=== PATIENT | male | born 1945 | race Two or more races ===

== ENCOUNTER 2018-12-13 08:29 | Day surgery (SDC) | payer MEDICARE ==
[~2018-12-13 08:29] MED LIST: Acetaminophen TAB* 325 MG PO PRN; Buffered Lidocaine 1% SYRIN* 1 ML/SYRINGE INTRADERM ONE
[2018-12-13] MEDS ORDERED: Midazolam* 1 MG/ML 2 ML VIAL (2 MG) ONE ×2 (09:27→09:30)
[2018-12-13 09:57] VITALS: BP 127/67
--- NOTE | 2018-12-13 12:55 | OP ---
DATE OF OPERATION/DATE OF DICTATION: 12/13/2018. DATE OF : 1945. SURGEON: Dr. Tam Haider. APPLICATION PERFORMANCE ENGINEER: None. ANESTHESIA: Topical with intravenous sedation. PRE-OP DIAGNOSIS: Cataract, left eye. POST-OP DIAGNOSIS: Cataract, left eye. OPERATIVE PROCEDURE: Phacoemulsification and cataract extraction with posterior chamber intraocular lens implant, left eye. COMPLICATIONS: None. BLOOD LOSS: None. OPERATIVE FINDINGS: The patient was brought to the operating room and received a small amount of int ravenous sedation. A drop of Tetracaine was placed in his left eye. He was prepped and draped in th e usual sterile fashion for ophthalmic surgery and attention was directed to the left eye where a spe culum was placed. A paracentesis was created at the 5 o'clock position and 0.1 cc of 1 percent prese rvative-free Lidocaine was injected into the anterior chamber followed by DisCoVisc. The eye was dig itally stabilized while a 2.75 mm keratome was used to create a triplanar clear corneal incision at t he 3 o'clock position. A continuous curvilinear capsulorrhexis was created with a cystotome and Utra ta forceps. BSS on a cannula was used to hydrodissect the lens from the capsule. Phacoemulsificatio n was performed in a [id number]-[id number] technique to create four fragments which were removed. Resid ual cortical material was removed with irrigation and aspiration. DisCoVisc was used to inflate the c apsular bag and an AUOOTO 17.0 diopter lens was folded and inserted into the capsular bag. DisCoVisc was removed using irrigation and aspiration. BSS on a cannula was used to hydrate the corneal rachel a and seal the wound. At the end of the case the pupil was round and the lens was centered. The eye was of normal pressure and the wound was water tight. The speculum was removed and topical Maxitrol ointment was placed on the surface of the eye. The eye was closed, patched and shielded and the camelia ent was sent to the recovery room in stable condition with post operative instructions and follow-up appointment given. [id number]/[facility] #: [id number]
[2018-12-13] MEDS ORDERED: Lidocaine 1%* 5 ML VIAL ONE (15:25)
[2018-12-13] MEDS ORDERED: Cyclopentolate 1% OPTH.SOL* 2 ML BTL ONE (15:25)
[2018-12-13] MEDS ORDERED: Ketorolac 0.5% OPHTH (NF) 0.5 % 5 ML BTL ONE (15:25)
[2018-12-13] MEDS ORDERED: Neomycin/Polymy/Dex OPHTH.OIN* 3.5 GM ONE (15:25)
[2018-12-13] MEDS ORDERED: Phenylephrine OPHTH SOL 2.5%* 2 ML ONE (15:25)
[2018-12-13] MEDS ORDERED: Tropicamide 1% OPTH.SOL* BTL ONE (15:25)
[2018-12-13] MEDS ORDERED: Tetracaine 0.5% OPTH.SOL 4 ML* 1 DROP BTL ONE (15:25)
== END 2018-12-13 10:10 | disposition home or self-care (01) ==
LOC: OREAST 08:29
PROVIDERS: ATTEND Ophthalmology
DX: H25.13 Age-related nuclear cataract, bilateral (principal); I10 Essential (primary) hypertension; F32.9 Major depressive disorder, single episode, unspecified; K21.9 Gastro-esophageal reflux disease without esophagitis; E78.00 Pure hypercholesterolemia, unspecified; J30.9 Allergic rhinitis, unspecified; J30.2 Other seasonal allergic rhinitis; N40.0 Benign prostatic hyperplasia without lower urinary tract symptoms; G47.33 Obstructive sleep apnea (adult) (pediatric); Z85.828 Personal history of other malignant neoplasm of skin
CPT/HCPCS: A9270-GY; J2250; V2632

== ENCOUNTER 2018-12-20 06:56 | Day surgery (SDC) | payer MEDICARE ==
[2018-12-20] MEDS ORDERED: Midazolam* 1 MG/ML 5 ML VIAL (5 MG) ONE (08:04)
[2018-12-20 08:53] VITALS: BP 133/65
--- NOTE | 2018-12-20 09:08 | OP ---
OPERATIVE REPORT: DATE OF OPERATION: 12/20/18 DATE OF : [birth year] SURGEON: Dr. Tam Haider. APPLIED RESEARCH DIRECTOR: None. ANESTHESIA: Topical with intravenous sedation. PRE-OP DIAGNOSIS: Cataract, right eye. POST-OP DIAGNOSIS: Cataract, right eye. OPERATIVE PROCEDURE: Phacoemulsification and cataract extraction with posterior chamber intraocular lens implant, right eye. COMPLICATIONS: None. BLOOD LOSS: None. OPERATIVE FINDINGS: The patient was brought to the operating room and received a small amount of int ravenous sedation. A drop of Tetracaine was placed in his right eye. He was prepped and draped in t he usual sterile fashion for ophthalmic surgery and attention was directed to the right eye where a s peculum was placed. A paracentesis was created at the 11 o'clock position and 0.1 cc of 1 percent pr eservative-free Lidocaine was injected into the anterior chamber followed by DisCoVisc. The eye was digitally stabilized while a 2.75 mm keratome was used to create a triplanar clear corneal incision a t the 9 o'clock position. A continuous curvilinear capsulorrhexis was created with a cystotome and U trata forceps. BSS on a cannula was used to hydrodissect the lens from the capsule. Phacoemulsificat ion was performed in a [id number]-fvp-icibgdw technique to create four fragments which were removed. Res idual cortical material was removed with irrigation and aspiration. DisCoVisc was used to inflate th e capsular bag and an AU00T0 18.5 diopter lens was folded and inserted into the capsular bag. DisCoV isc was removed using irrigation and aspiration. BSS on a cannula was used to hydrate the corneal st anju and seal the wound. At the end of the case the pupil was round and the lens was centered. The eye was of normal pressure and the wound was water tight. The speculum was removed and topical Maxit rol ointment was placed on the surface of the eye. The eye was closed, patched and shielded and the patient was sent to the recovery room in stable condition with post operative instructions and follow -up appointment given. [id number]/[facility] #: [id number]
[2018-12-20] MEDS ORDERED: Lidocaine 1%* 5 ML VIAL ONE (12:11)
[2018-12-20] MEDS ORDERED: Cyclopentolate 1% OPTH.SOL* 2 ML BTL ONE (12:11)
[2018-12-20] MEDS ORDERED: Tetracaine 0.5% OPTH.SOL 4 ML* 1 DROP BTL ONE (12:11)
[2018-12-20] MEDS ORDERED: Phenylephrine OPHTH SOL 2.5%* 2 ML ONE (12:11)
[2018-12-20] MEDS ORDERED: Neomycin/Polymy/Dex OPHTH.OIN* 3.5 GM ONE (12:11)
[2018-12-20] MEDS ORDERED: Tropicamide 1% OPTH.SOL* BTL ONE (12:11)
[2018-12-20] MEDS ORDERED: Ketorolac 0.5% OPHTH (NF) 0.5 % 5 ML BTL ONE (12:12)
== END 2018-12-20 08:46 | disposition home or self-care (01) ==
LOC: OREAST 06:56
PROVIDERS: ATTEND Ophthalmology
DX: H25.11 Age-related nuclear cataract, right eye (principal); I10 Essential (primary) hypertension; E78.00 Pure hypercholesterolemia, unspecified; Z85.828 Personal history of other malignant neoplasm of skin; G47.33 Obstructive sleep apnea (adult) (pediatric); J45.909 Unspecified asthma, uncomplicated; I49.3 Ventricular premature depolarization; F41.8 Other specified anxiety disorders
CPT/HCPCS: A9270-GY; J2250; V2632